=== PATIENT | female | born 1960 | race African-American/Black ===

== ENCOUNTER 2016-09-23 09:33 | Emergency (ER) | payer OTHER ==
[~2016-09-23] VITALS: Ht 162.6 cm; Wt 73.0 kg
[2016-09-23] MEDS ORDERED: IBUPROFEN 400MG TABLET PO ONE (10:30)
[2016-09-23 13:15] VITALS: BP 137/60
== END 2016-09-23 13:25 | disposition home or self-care (01) ==
LOC: ER 10:32
DX: J02.9 Acute pharyngitis, unspecified (principal); M54.2 Cervicalgia; I10 Essential (primary) hypertension
CPT/HCPCS: 72125; 99284

== ENCOUNTER 2018-09-17 13:51 | Emergency (ER) | payer OTHER ==
[~2018-09-17] VITALS: Ht 162.6 cm; Wt 75.0 kg
[2018-09-17] MEDS ORDERED: ALBUTEROL (0.083%) 2.5MG/3ML NEB HHN STA (14:25)
[2018-09-17 14:48] LABS: BASOPHILS % 1.2 % (0.0-2.0); EOSINOPHILS % 1.2 % (0.0-5.0); HEMATOCRIT. 30.9 % (36.0-48.0); HEMOGLOBIN. 10.4 g/dL (12.0-16.0); LYMPHOCYTES % 19.1 % (20.0-50.0); MEAN CORPUSCULAR HEMOGLOBIN 27.2 pg (28.0-32.0); MEAN CORPUSCULAR VOLUME 80.8 fL (81.0-99.0); MEAN PLATELET VOLUME 8.2 fl (7.4-10.4); MONOCYTES % 8.3 % (2.0-8.0); NEUTROPHILS % 70.2 % (40.0-76.0); PLATELET 399 x1000/uL (130-400); RED BLOOD CELL COUNT 3.83 mill/uL (4.2-5.4); RED CELL DISTRIBUTION WIDTH 15.9 % (11.6-14.6)
[2018-09-17 14:53] LABS: CHLORIDE 101 mEq/L (98-107)
[2018-09-17 21:52] VITALS: BP 122/78
== END 2018-09-17 21:50 | disposition short-term general hospital (02) ==
LOC: ER 13:51
DX: R06.00 Dyspnea, unspecified (principal); Z85.819 Personal history of malignant neoplasm of unspecified site of lip, oral cavity, and pharynx; Z98.890 Other specified postprocedural states
CPT/HCPCS: 36415; 71045; 80053; 83880; 84484; 85025; 93005; 94640; 99285; J7611; Z7610

== ENCOUNTER 2018-10-06 08:44 | Emergency (ER) | payer OTHER ==
[~2018-10-06] VITALS: Ht 162.6 cm; Wt 70.0 kg
[2018-10-06] MEDS ORDERED: SODIUM CHLORIDE 0.9% 1,000 ML IV ONE (09:31)
[2018-10-06] MEDS ORDERED: IPRATROPIUM BROMIDE (0.02%) 0.5MG/2.5ML NEB HHN STA (09:31)
[2018-10-06] MEDS ORDERED: ALBUTEROL (0.083%) 2.5MG/3ML NEB HHN STA (09:31)
[2018-10-06] MEDS ORDERED: MORPHINE SULFATE 4 MG/ML CPJ (NOT FOR IM USE) IV ONE (09:45)
[2018-10-06] MEDS ORDERED: KETOROLAC 30MG/ML VIAL IV ONE (09:45)
[2018-10-06] MEDS ORDERED: DEXAMETHASONE 10 MG/ML VIAL IV ONE (09:45)
[2018-10-06] MEDS ORDERED: ONDANSETRON HCL 4MG/2ML INJ IV ONE (09:45)
[2018-10-06 09:47] LABS: BASOPHILS % 0.6 % (0.0-2.0); EOSINOPHILS % 3.1 % (0.0-5.0); HEMATOCRIT. 32.7 % (36.0-48.0); HEMOGLOBIN. 10.7 g/dL (12.0-16.0); LYMPHOCYTES % 15.2 % (20.0-50.0); MEAN CORPUSCULAR HEMOGLOBIN 27.6 pg (28.0-32.0); MEAN CORPUSCULAR VOLUME 84.6 fL (81.0-99.0); MEAN PLATELET VOLUME 7.8 fl (7.4-10.4); MONOCYTES % 8.7 % (2.0-8.0); NEUTROPHILS % 72.4 % (40.0-76.0); PLATELET 423 x1000/uL (130-400); RED BLOOD CELL COUNT 3.86 mill/uL (4.2-5.4); RED CELL DISTRIBUTION WIDTH 17.4 % (11.6-14.6)
[2018-10-06 09:48] LABS: CHLORIDE 98 mEq/L (98-107)
[2018-10-06 09:50] LABS: INR 1.1; PARTIAL THROMBOPLASTIN TIME 26.4 sec (23.4-31.0); PROTHROMBIN TIME 11.7 sec (9.6-11.0)
[2018-10-06] MEDS ORDERED: IOHEXOL-300 100 ML BOTTLE ONE (11:58)
[2018-10-06 16:25] VITALS: BP 108/74
== END 2018-10-06 16:42 | disposition short-term general hospital (02) ==
LOC: ER 08:57
DX: J44.1 Chronic obstructive pulmonary disease with (acute) exacerbation (principal); R06.00 Dyspnea, unspecified; I10 Essential (primary) hypertension; I11.9 Hypertensive heart disease without heart failure; Z85.89 Personal history of malignant neoplasm of other organs and systems; Z95.0 Presence of cardiac pacemaker; Z98.890 Other specified postprocedural states
CPT/HCPCS: 36415; 70487; 70491; 71045; 80053; 83605; 83880; 84484; 85025; 85610; 85730; 87040; 93005; 94644; 96374; 96375; 99285; J1100; J1885; J2270; J2405; J7030; J7611; Q9967; Z7610

== ENCOUNTER 2018-11-05 18:39 | Emergency (ER) | payer OTHER ==
[~2018-11-05] VITALS: Ht 165.1 cm; Wt 77.0 kg
[2018-11-05] MEDS ORDERED: ONDANSETRON HCL 4MG/2ML INJ IV STA (19:46)
[2018-11-05] MEDS ORDERED: PIPERACILLIN/TAZ 3.375G PREMIX 50 ML IV ONE (20:00)
[2018-11-05] MEDS ORDERED: SODIUM CHLORIDE 0.9% 1000ML BAG (SEPSIS BOLUS) IV ONE (20:00)
[2018-11-05] MEDS ORDERED: VANCOMYCIN 1 G PREMIX 200 ML IV ONE (20:00)
[2018-11-05] MEDS ORDERED: MORPHINE SULFATE 4 MG/ML CPJ (NOT FOR IM USE) IV ONE (20:00)
[2018-11-05 20:20] LABS: HEMATOCRIT. 27.6 % (36.0-48.0); HEMOGLOBIN. 9.2 g/dL (12.0-16.0); LYMPHOCYTES % 9.6 % (20.0-50.0); MEAN CORPUSCULAR HEMOGLOBIN 27.4 pg (28.0-32.0); MEAN CORPUSCULAR VOLUME 82.3 fL (81.0-99.0); MEAN PLATELET VOLUME 7.3 fl (7.4-10.4); MONOCYTES % 6.6 % (2.0-8.0); NEUTROPHILS % 81.8 % (40.0-76.0); PLATELET 561 x1000/uL (130-400); RED BLOOD CELL COUNT 3.35 mill/uL (4.2-5.4); RED CELL DISTRIBUTION WIDTH 17.5 % (11.6-14.6)
[2018-11-05 20:24] LABS: CHLORIDE 99 mEq/L (98-107); INR 1.1; PROTHROMBIN TIME 11.3 sec (9.6-11.0)
[2018-11-05 21:43] LABS: CLARITY URINE CLOUDY (CLEAR); COLOR URINE YELLOW (YELLOW); KETONES URINE NEGATIVE (NEGATIVE); LEUKOCYTE ESTERASE URINE 2+ (NEGATIVE); NITRITE URINE POSITIVE (NEGATIVE); OCCULT BLOOD URINE NEGATIVE (NEGATIVE); PH URINE >=9.0 (4.5-8.0); PROTEIN URINE TRACE (NEGATIVE); SPECIFIC GRAVITY URINE 1.021 (1.005-1.030)
[2018-11-05] MEDS ORDERED: HYDROMORPHONE HCL/PF 2MG/ML CPJ IV ONE (22:00)
[2018-11-06 00:09] VITALS: BP 121/50
== END 2018-11-06 00:28 | disposition short-term general hospital (02) ==
LOC: ER 18:39 → CANBEDREQ 11-06 03:46
DX: A41.9 Sepsis, unspecified organism (principal); N39.0 Urinary tract infection, site not specified; Z95.0 Presence of cardiac pacemaker; Z93.1 Gastrostomy status
CPT/HCPCS: 36415; 71045; 80053; 81003; 83605; 84145; 84484; 85025; 85610; 87040; 87086; 93005; 96365; 96367; 96375; 99291; J1170; J2270; J2405; J2543; J3370; J7030; Z7610

== ENCOUNTER 2018-11-19 14:18 | Emergency (ER) | payer OTHER ==
[~2018-11-19] VITALS: Ht 165.1 cm; Wt 62.0 kg
[2018-11-19] MEDS ORDERED: KETOROLAC 30MG/ML VIAL IV STA (15:38)
[2018-11-19 16:00] LABS: BASOPHILS % 1.1 % (0.0-2.0); EOSINOPHILS % 1.6 % (0.0-5.0); HEMATOCRIT. 24.1 % (36.0-48.0); LYMPHOCYTES % 17.3 % (20.0-50.0); MEAN CORPUSCULAR HEMOGLOBIN 27.1 pg (28.0-32.0); MEAN CORPUSCULAR VOLUME 82.2 fL (81.0-99.0); MONOCYTES % 9.7 % (2.0-8.0); NEUTROPHILS % 70.3 % (40.0-76.0); PLATELET 501 x1000/uL (130-400); RED BLOOD CELL COUNT 2.94 mill/uL (4.2-5.4); RED CELL DISTRIBUTION WIDTH 17.4 % (11.6-14.6)
[2018-11-19 16:07] LABS: INR 1.1; PROTHROMBIN TIME 11.8 sec (9.6-11.0)
[2018-11-19 16:10] LABS: CHLORIDE 97 mEq/L (98-107)
[2018-11-19] MEDS ORDERED: DIATR MEGLU/DIATRIZOATE SOLN 30ML ONE ×2 (16:20→16:42)
[2018-11-19] MEDS ORDERED: ONDANSETRON HCL 4MG/2ML INJ IV ONE (17:15)
[2018-11-19] MEDS ORDERED: MORPHINE SULFATE 4 MG/ML CPJ (NOT FOR IM USE) IV ONE (17:15)
[2018-11-19 18:00] VITALS: BP 134/74
== END 2018-11-19 18:30 | disposition home or self-care (01) ==
LOC: ER 14:18
DX: R10.9 Unspecified abdominal pain (principal); Z43.1 Encounter for attention to gastrostomy; I51.9 Heart disease, unspecified; Z85.21 Personal history of malignant neoplasm of larynx; Z95.0 Presence of cardiac pacemaker
CPT/HCPCS: 36415; 74018; 80053; 83690; 85025; 85610; 96374; 96375; 99284; J1885; J2270; J2405; Q9963; Z7610

== ENCOUNTER 2019-02-03 09:56 | Emergency (ER) | payer OTHER ==
[~2019-02-03] VITALS: Ht 162.6 cm; Wt 68.0 kg
[2019-02-03] MEDS ORDERED: MORPHINE SULFATE 15MG TABLET SR PO ONE (12:30)
[2019-02-03] MEDS ORDERED: MORPHINE SULFATE 10MG/5ML ORAL SOLN UDC PO NR (13:00)
[2019-02-03] MEDS ORDERED: MORPHINE SULFATE 2 MG/ML CPJ (NOT FOR IM USE) IV ONE (14:15)
[2019-02-03] MEDS ORDERED: ALBUTEROL (0.083%) 2.5MG/3ML NEB HHN ONE (14:30)
[2019-02-03] MEDS ORDERED: ACETYLCYSTEINE 200MG/ML 20% VIAL 30ML PO ONE (14:30)
[2019-02-03] MEDS ORDERED: ACETYLCYSTEINE 100MG/ML 10% VIAL 4ML INH ONE ×2 (14:45)
[2019-02-03 15:40] VITALS: BP 136/74
== END 2019-02-03 15:48 | disposition home or self-care (01) ==
LOC: ER 09:56
DX: J95.03 Malfunction of tracheostomy stoma (principal); I51.9 Heart disease, unspecified; Z95.0 Presence of cardiac pacemaker
CPT/HCPCS: 71045; 94640; 96374; 99283; A4217; J2270; J7608; J7611; Z7610